=== PATIENT | male | born 1990 | race Caucasian/White ===

== ENCOUNTER 2019-11-20 21:26 | Emergency (ER) | payer MEDICAID ==
[~2019-11-20] VITALS: Ht 160 cm; Wt 59.0 kg
[2019-11-20 21:28] VITALS: BP 160/69
--- NOTE | 2019-11-20 21:33 | NUR ---
PT TAKEN TO BED 3
[2019-11-20] MEDS: IBUPROFEN 600 MG TAB PO ONE (21:37)
[2019-11-20] MEDS: diphenhydrAMINE 50 MG CAP PO ONE (21:39)
--- NOTE | 2019-11-20 21:39 | NUR ---
BENADRYL 50 MG PO GIVEN.
--- NOTE | 2019-11-20 21:40 | NUR ---
PATIENT REFUESED MOTRIN. NOT GIVEN.
--- NOTE | 2019-11-20 21:42 | NUR ---
PT 29 Y/O MALE BIB SELF FOR C/O ALLERGIC REACTION AFTER TAKING MEDICATION AT HOME TO TREAT A FEVER. PT TOOK A MEDICATION FROM [place] CALLED JYOTHI-MELBRINA 1 TAB 500 MG PO. WHITE RAISED HIVES NOTED ALL OVER BODY. PT HAS C/O DIFFICULTY SWALLOWING BUT ABLE TO TAKE BENADRYL PO WITHOUT DIFFICULTY. PT RESOIRATIONS ARE EVEN AND UNLABORED. O2SAT @ 98 % ON RA. PT STATES HE HAD AN ACCIDENT IN 2018 AND WAS TAKING OXYCODONE. PT STATED ONCE HE STOPPED TAKING IT HE HAS HAD ALLERGIC REACTIONS TO OTC PAIN MEDICATIONS SPECIFICALLY ACETAMINOPHEN. DENIES PAIN. DENIES N/V/D. PT ON MONITOR. GIRLFRIEND AT BEDSIDE. MEDHX: NONE ALLERGIES: NKA
--- NOTE | 2019-11-20 22:12 | NUR ---
Dr. Boyce examining patient.
[2019-11-20] MEDS: ALBUTEROL SULFATE/IPRATROPIU 3 ML SOL IH ONE (22:22)
[2019-11-20] MEDS: ALBUTEROL 0.083% 2.5 MG/3 ML NEBU INH ONE (22:22)
[2019-11-20] MEDS: EPINEPHrine 1:1000 - 1 MG/ML AMP IM ONE (22:31)
[2019-11-20] MEDS: predniSONE 20 MG TAB PO ONE (22:36)
--- NOTE | 2019-11-20 22:37 | NUR ---
Respiratory Therapist at bedside for respiratory intervention.
[2019-11-20] MEDS: NACL 0.9% 1,000 ML IV ONE (22:55)
--- NOTE | 2019-11-20 22:55 | NUR ---
DR MADE AWARE OF PT HR @ 160. GAVE NEW ORDER FOR 1L OF NS 0.9% IV TO BE GIVEN WIDE OPEN. IV SITE STARTED AT L AC. IV SITE PATENT. NO C/O PAIN. NO SWELLING OR REDNESS NOTED. FLUIDS RUNNING CONTINOUSLY.
--- NOTE | 2019-11-20 23:18 | NUR ---
PATIENT AMB TO RESTROOM. IV PAUSED.
--- NOTE | 2019-11-20 23:30 | NUR ---
VITAL SIGN REASSESSED. ERMD AWARE OF HIGH HEART RATE
[2019-11-20] MEDS: ACETAMINOPHEN EXTRA STRENGTH 500 MG TAB PO ONE (23:37)
--- NOTE | 2019-11-20 23:37 | NUR ---
PATIENT REFUESED TYLENOL FOR FEAR OF ALLERGIC REACTION.
[2019-11-20 23:45] VITALS: BP 112/60
--- NOTE | 2019-11-20 23:45 | NUR ---
Patient discharged with v/s stable. Written and verbal after care instructions given and explained. Patient alert, oriented and verbalized understanding of instructions. Ambulatory with steady gait. All questions addressed prior to discharge. ID band removed. Patient advised to follow up with PMD. Rx of BENADRYL, PREDNISONE given. Patient educated on indication of medication including possible reaction and side effects. Opportunity to ask questions provided and answered.
--- NOTE | 2019-11-21 12:23 | NUR ---
Late entry. Confirmed with RN that 0.9 NS IV completed at 2348
== END 2019-11-20 23:45 | disposition home or self-care (01) ==
LOC: MED 21:26
DX: L25.8 Unspecified contact dermatitis due to other agents (principal); T78.49XA Other allergy, initial encounter; T39.395A Adverse effect of other nonsteroidal anti-inflammatory drugs [NSAID], initial encounter; Y92.89 Other specified places as the place of occurrence of the external cause; Z91.013 Allergy to seafood
CPT/HCPCS: 94640; 96372; 99284; J0171; J7030; J7512; J7613; J7620; Q0163

== ENCOUNTER 2022-06-04 11:03 | Emergency (ER) | payer SELFPAY ==
[~2022-06-04] VITALS: Ht 165.1 cm; Wt 61.7 kg
[2022-06-04 11:18] VITALS: BP 108/71
--- NOTE | 2022-06-04 11:22 | NUR ---
pt walked to bed 3
--- NOTE | 2022-06-04 11:26 | NUR ---
c/o of possible stye on left eye x 3 weeks. denies dishcharge. states he has been using abx from [place] for 1 week with no improvement, abx unknown. pmh: denies
[2022-06-04] MEDS ORDERED: TRIAMCINOLONE 40 MG/ML 5ML VIAL IM ONE (12:00)
[2022-06-04 12:54] VITALS: BP 111/68
== END 2022-06-04 12:56 | disposition home or self-care (01) ==
LOC: MED 11:03
DX: H00.14 Chalazion left upper eyelid (principal); Z91.013 Allergy to seafood; Z88.8 Allergy status to other drugs, medicaments and biological substances
CPT/HCPCS: 11900; 99284; J3301; 96372; 99283